=== PATIENT | male | born 1980 | race Hispanic/Latino ===

== ENCOUNTER 2025-04-04 14:32 | Inpatient (IN) | payer SELFPAY ==
[~2025-04-04] VITALS: Ht 170.2 cm; Wt 84.3 kg
--- NOTE | 2025-04-04 14:54 | ERN ---
General Chief Complaint: Abdominal Pain Stated Complaint: ABDOMINAL PAIN Time Seen by MD: 14:35 Source: patient, family History of Present Illness Initial Comments Is a 45-year-old male who came to the ER with complain of severe abdominal pain which started after eating. The patient, he has not had proper bowel movement for past few days and had degrees passage of flatus. Timing/Duration: 1-3 hours Severity: severe Modifying Factors: improves with eating Associated Symptoms: other Allergies: Coded Allergies: No Known Drug Allergies (Unverified Allergy, Unknown, 04/04/25) Past Medical History Past Medical History: Hypertension Past Surgical History: None Gastrointestinal/Abdominal: (+) abdominal pain Physical Exam General Appearance: (+) moderate distress Orientation: (+) alert, (+) oriented x 3 Head/Face Trauma: No Ear, Nose, Throat: (-) hearing grossly normal, (-) normal ENT inspection, (-) moist mucous membraine, (-) normal pharynx, (-) normal TM, (-) abnormal TM, (-) pharyngeal erythema, (-) sinus drainange, (-) sinus pain, (-) tonsillar exudate, (-) tonsillar swelling, (-) nasal drip, (-) nasal congestion, (-) hearing decreased, (-) dry mucous membraine, (-) other documentation Neck: (-) normal inspection, (-) supple, (-) full range of motion, (-) no JVD, (-) non-tender, (-) no bruit, (-) tender, (-) limited range of motion, (-) tender lateral, (-) tender midline, (-) thyromegaly, (-) lymphadenopathy, (-) masses, (-) carotid bruit, (-) other documentaion Respiratory: (-) chest non-tender, (-) lungs clear, (-) well ventilated, (-) decreased breath sounds, (-) retractions, (-) abnormal breath sound, (-) crackles, (-) plerual rub, (-) rales, (-) rhonchi, (-) stridor, (-) wheezing, (- ) other documentation Heart: (-) regular, (-) no gallop, (-) murmur, (-) irregular, (-) bradycardia, (-) tachycardia, (-) systolic murmur, (-) diastolic murmur, (-) extra beats, (-) friction rub, (-) gallop/S3, (-) gallop/S4, (-) other documentation Vascular: (-) no edema, (-) normal peripheral pulse, (-) no JVD, (-) abdominal aorta, (-) abnormal peripheral pulse, (-) carotid bruit, (-) edema, (-) JVD, (-) varicose vein, (-) other documentation Gastrointestinal: (+) tender Extremities: (-) normal range of motion, (-) non-tender, (-) normal inspection, (-) no pedal edema, (-) no calf tenderness, (-) normal capillary refill, (-) pelvis stable, (-) calf tenderness, (-) inflammation, (-) pedal edema, (-) slow capillary refill, (-) swelling, (-) other Neurologic/Psychiatric: (-) normal speech, (-) no motor defecits, (-) no sensory deficits, (-) synthetic filament extruder II-XII nml as tested, (-) normal gait, (-) normal mood/affect, (-) abnormal cerebellar tests, (-) abnormal gait, (-) aphasia, (-) facial droop, (-) other documentation Results Laboratory and Microbiology Lab and Micro Result Laboratory Tests Test 04/04/25 14:47 04/04/25 15:52 White Blood Count 11.2 K/uL (4.8-10.8) H Red Blood Count 4.89 MIL/uL (4.50-6.20) Hemoglobin 14.2 g/dL (14.0-18.0) Hematocrit 42.7 % (42-54) Mean Corpuscular Volume 87.3 fL (79-99) Mean Corpuscular Hemoglobin 29.0 pg (27.0-33.0) Mean Corpuscular Hemoglobin Concent 33.3 g/dL (32.0-36.0) Red Cell Distribution Width 13.2 % (11.0-15.5) Platelet Count 342 K/uL (130-400) Mean Platelet Volume 10.8 fL (7.5-10.5) H Immature Granulocyte % (Auto) 0.3 % (0-1) Neutrophils (%) (Auto) 61.4 % (40.0-77.0) Lymphocytes (%) (Auto) 29.1 % (21.0-51.0) Monocytes (%) (Auto) 7.7 % (3.0-13.0) Eosinophils (%) (Auto) 1.1 % (0.0-8.0) Basophils (%) (Auto) 0.4 % (0.0-5.0) Neutrophils # (Auto) 6.9 K/uL (1.8-7.7) Lymphocytes # (Auto) 3.3 K/uL (1.0-4.8) Monocytes # (Auto) 0.9 K/uL (0.1-1.0) Eosinophils # (Auto) 0.12 K/uL (0.00-0.70) Basophils # (Auto) 0.05 K/uL (0.00-0.20) Absolute Immature Granulocyte (auto 0.03 K/uL (0-1) Nucleated Red Blood Cells 0.0 % (0.0-0.19) Prothrombin Time 11.1 SEC (9.6-11.6) Prothromb Time International Ratio 1.05 (0.85-1.15) Activated Partial Thromboplast Time 27.0 SEC (26.3-35.5) Sodium Level 141 mmol/L (136-145) Potassium Level 3.6 mmol/L (3.5-5.1) Chloride Level 102 mmol/L (101-111) Carbon Dioxide Level 29 mmol/L (21-32) Blood Urea Nitrogen 19 mg/dL (7-18) H Creatinine 0.8 mg/dL (0.5-1.3) Glomerular Filtration Rate Calc 111 mL/min (>90) Random Glucose 127 mg/dL (70-105) H Lactic Acid Level 1.4 mmol/L (0.8-2.5) Total Calcium 8.8 mg/dL (8.5-10.1) Total Bilirubin 0.5 mg/dL (0.2-1.0) Direct Bilirubin 0.1 mg/dL (0.0-0.3) Aspartate Amino Transf (AST/SGOT) 23 U/L (10-37) Alanine Aminotransferase (ALT/SGPT) 31 U/L (12-78) Alkaline Phosphatase 62 U/L (50-136) Troponin I High Sensitivity 129 ng/L (4-75) *H 132 ng/L (4-75) *H Total Protein 8.0 g/dL (6.0-8.3) Albumin 4.2 g/dL (3.5-5.0) Lipase 17 U/L (16-77) Procalcitonin < 0.05 ng/mL (0.05-0.5) L MDM MDM: Differential diagnosis: Rationale: Tests considered and ordered secondary to shared decision making include: labs, ECG and radiology Previous outside records reviewed: Old ER visits. Risk of complication and/or morbidity or mortality of patient management: None Medications-Per medication reconciliation Need for hospitalization: Patient does meet criteria for hospitalization. Need for emergency major/minor surgery: No There are no social concerns with this patient. Prescription drug management Prescriptions will include symptomatic care Patient's prior external medical records from other ER visits were reviewed by me as indicated. Prior testing and results from previous visits were reviewed. Prior tests were taken into account with medical decision making and resource utilization, independent historian/historians were used to obtain complete medical history. I independently interpreted the test that were performed, results were reviewed by me and considered findings on radiology if ordered. Medical management and examination interpretation discussions were had by me with other qualified healthcare professionals as indicated for the patient's care. ED Course Orders Procedure Category Date Status Time 12 Lead Ekg Tracing- EKG 04/04/25 Resulted Technical 14:39 Cbc With Differential LAB 04/04/25 Complete 14:39 Basic Metabolic Panel LAB 04/04/25 Complete 14:39 Hepatic Function Panel LAB 04/04/25 Complete 14:39 Lactic Acid LAB 04/04/25 Complete 14:39 Lipase LAB 04/04/25 Complete 14:39 Procalcitonin LAB 04/04/25 Complete 14:39 Pt And Ptt LAB 04/04/25 Complete 14:39 Troponin I High LAB 04/04/25 Complete Sensitivity 14:39 Urinalysis LAB 04/04/25 Logged W/Microscopic 14:39 Chest 1vw RAD 04/04/25 Resulted 14:39 Ct Abdomen/Pelvis W/O CT 04/04/25 Resulted Contrast 14:39 Ondansetron 4mg Inj PHA 04/04/25 Complete (Zofran 4mg Inj) 15:00 Famotidine 20mg Vial PHA 04/04/25 Complete (Pepcid 20mg Vial) 15:00 Morphine 2mg Syg PHA 04/04/25 Complete (Morphine 2mg Syg) 15:00 Troponin I High LAB 04/04/25 Complete Sensitivity 15:45 Current Medications Medications (Trade) Dose Ordered Sig/Frederikc Route PRN Reason Start Time Stop Time Status Last Admin Dose Admin Famotidine (Pepcid 20mg Vial) 20 mg ONCE ONCE IV 04/04/25 15:00 04/04/25 15:01 DC 04/04/25 15:23 Morphine Sulfate (morPHINE 2MG SYG) 2 mg ONCE ONCE IVP 04/04/25 15:00 04/04/25 15:01 DC 04/04/25 15:23 Ondansetron HCl (zoFRAN 4MG INJ) 4 mg ONCE ONCE IVP 04/04/25 15:00 04/04/25 15:01 DC 04/04/25 15:23 Vital Signs Date Time Temp Pulse Resp B/P (MAP) Pulse Ox O2 Delivery O2 Flow Rate FiO2 04/04/25 15:03 98.1 70 18 121/82 98 Room Air* 0 21 04/04/25 14:33 98.1 70 16 121/82 98 Room Air DX & DISP Disposition: Inpatient Departure Impression: Primary Impression: Abdominal pain Additional Impression: Elevated troponin Condition: Stable FERNANDO JUAREZ MD Apr 04, 2025 14:54 OMID CHRISTY MD Apr 04, 2025 17:09
[2025-04-04 14:57] LABS: IMMATURE GRANULOCYTE ABSOLUTE 0.03 K/uL (0-1); NUCLEATED RED BLOOD CELLS 0.0 % (0.0-0.19); PLATELET COUNT (AUTO) 342 K/uL (130-400); RED BLOOD CELL COUNT(AUTO) 4.89 MIL/uL (4.50-6.20); RED CELL DISTRIBUTION WIDTH 13.2 % (11.0-15.5); WHITE BLOOD COUNT (AUTO) 11.2 K/uL (4.8-10.8)
--- NOTE | 2025-04-04 15:03 | EKG ---
[facility] Test Date: 2025-04-04 Test Time: 14:57:50 Pat Name: ORIANA MCNEAL Department: [facility] Room: Gender: M [employer] Chemist: [facility] : 1980 Requested By: OMID CHRISTY Order Number: [id number] Reading MD: John Ellsworth Measurements Intervals [place] Rate: 69 P: 9 MN: 182 QRS: -32 QRSD: 87 T: 22 QT: 383 QTc: 412 Interpretive Statements Sinus rhythm Inferior infarct, old ST elevation, consider anterolateral injury No previous ECG available for comparison Electronically Signed On 04-04-2025 16:17:02 TREASURY ANALYST by John Ellsworth Please click the below link to view image of tracing.
[2025-04-04 15:12] LABS: CREATININE 0.8 mg/dL (0.5-1.3); GLOMERULAR FILTR. RATE CALC 111.0 mL/min (>90); GLUCOSE,RANDOM 127.0 mg/dL (70-105); SODIUM SERUM 141.0 mmol/L (136-145); UREA NITROGEN, BLOOD 19.0 mg/dL (7-18)
[2025-04-04] MEDS: FAMOTIDINE 20MG VIAL IV ONE (15:23)
[2025-04-04 15:27] LABS: INR 1.05 (0.85-1.15)
[2025-04-04 15:29] LABS: ASPARTATE AMINOTRANSFERASE 23.0 U/L (10-37); TOTAL PROTEIN, SERUM 8.0 g/dL (6.0-8.3)
--- NOTE | 2025-04-04 16:00 | HMCIMG ---
EXAM: CR Chest, 2 View. CLINICAL HISTORY: Shortness of breath COMPARISON: None provided. FINDINGS: LUNGS: The lungs show no infiltrate or other acute finding. PLEURAL SPACES: No pleural effusion or pneumothorax. MEDIASTINUM: Cardiac size and mediastinal contours within normal limits. BONES: No acute osseous abnormality. IMPRESSION: No acute cardiopulmonary pathology is evident. /[place]
--- NOTE | 2025-04-04 16:18 | HMCIMG ---
EXAM: CT Abdomen and Pelvis Without IV contrast CLINICAL HISTORY: Abdominal pain TECHNIQUE: Axial computed tomography images of the abdomen and pelvis without intravenous contrast. CONTRAST: No IV contrast. COMPARISON: None provided. FINDINGS: LUNG BASES: The lung bases appear clear. No pleural effusions are seen. LIVER: Unremarkable. GALLBLADDER AND BILE DUCTS: The gallbladder appears within normal limits. No radioopaque gallstones are seen. No biliary ductal dilatation is evident. PANCREAS: Unremarkable. SPLEEN: Unremarkable. ADRENAL GLANDS: Unremarkable. KIDNEYS, URETERS, AND BLADDER: The kidneys appear within normal limits. There is no hydronephrosis or hydroureter. No urinary calculi are seen. STOMACH AND BOWEL: Unremarkable appearance of the stomach and bowel. No evidence of bowel obstruction. No evidence suggesting enteritis or colitis. APPENDIX: No evidence of acute appendicitis on CT examination. PERITONEUM: No free fluid. No free air. LYMPH NODES: No lymphadenopathy is evident. REPRODUCTIVE: Hyperdense foreign objects within the shaft of the penis, may represent subcutaneous implants. VASCULATURE: No evidence of abdominal aortic aneurysm. BONES: No aggressive appearing osseous lesion. No acute osseous pathology evident. IMPRESSION: 1. No acute intraabdominal or pelvic pathology. /[place]
--- NOTE | 2025-04-04 17:47 | HP ---
[facility] PH[facility] Date of Service: Apr 04, 2025 Time of Service: 17:47 HISTORY OF PRESENT ILLNESS: 45-year-old male with past medical history of hypertension, hyperlipidemia presented to the hospital secondary to abdominal pain. Patient states he noted that he was having pain in the left upper quadrant/epigastric area today. He had associated nausea and vomiting associated with the pain. He is having episodes of constipation but had a small amount of bowel movement today. He denied any melena, hematochezia, hematemesis. He currently denies active chest pain. He does endorse episodes of chest pain occasionally. He had one episode few months ago. Denied any jaw pain, back pain, numbness to his arms. Denied any falls, syncopal episode. He has seen Dr. Nima Brooks in the past and had undergone stress test. Denied any dysuria, cough, fever, chills. Patient's white count was noted to be 11.2, hemoglobin was 14.2, platelet count was 342 K, sodium was 140, potassium was 3.6, creatinine was 0.8, BUN was 19, LFTs were unremarkable, lipase was negative patient's troponin was noted to be positive with was set noted to be 129 and 2nd one was noted to be [address] abdomen pelvis which showed no acute intra-abdominal pathology REVIEW OF SYSTEMS CONSTITUTIONAL: Denies fevers, chills, or night sweats. No unintentional weight loss reported. NEUROLOGICAL: Denies headache, amaurosis fugax, motor weakness, sensory deficit, vertigo/spinning sensation, gait abnormalities, or tremors. ENT: No hearing loss, otalgia, otorrhea, rhinitis, rhinorrhea, hoarseness, or sore throat. CARDIOVASCULAR: Denies any exertional angina, dyspnea on exertion, orthopnea, paroxysmal nocturnal dyspnea, palpitations, life-threatening arrhythmias, claudication. PULMONARY: Denies any shortness of breath, cough, phlegm/sputum, hemoptysis, pleuritic chest pain. SLEEP: Denies morning headaches, daytime somnolence or napping. Denies difficulty falling asleep, staying asleep, waking from sleep. Denies knowledge of snoring. GASTROINTESTINAL: Positive for nausea, vomiting, constipation. Denied any diarrhea, melena, hematochezia, hematemesis GENITOURINARY: Denies frequency, urgency, nocturia, hematuria or incontinence (Storage/Irritative symptoms.) Low urinary stream, straining to void, urinary intermittency or hesitancy, splitting of the voiding stream, terminal dribbling. ENDOCRINOLOGIC: Denies polyuria, polydipsia, polyphagia or heat/cold intolerances. HEMATOLOGIC: Denies thrombophilia/previous clots, or coagulopathy/bleeding disorders. ONCOLOGIC: Denies personal history of malignancy. DERMATOLOGIC: Denies rashes or pruritus. PSYCHIATRIC: Denies any suicidal or homicidal ideation. Denies hallucinations. PAST MEDICAL HISTORY: Hypertension, hyperlipidemia PAST SURGICAL HISTORY: Denied any surgical history PAST SOCIAL HISTORY: Denied smoking. He quit drinking more than 20 years ago. He patient has a history of cocaine use. He states he quit using cocaine around 20 years ago. He currently works as a painter helper FAMILY HISTORY: Denied any pertinent family history Coded Allergies: No Known Drug Allergies (Unverified Allergy, Unknown, 04/04/25) PHYSICAL EXAM GENERAL APPEARANCE: The patient is awake, alert, and oriented, in no acute cardiopulmonary distress. NEUROLOGICAL: Cranial nerves II-XII grossly intact. Motor is 5/5 in bilateral upper and lower extremities proximal to distal. No sensory deficits. HEENT: Face is symmetric. Pupils are equal and reactive. Extraocular movements are intact. NECK: Supple. No JVD. No thyromegaly. No submental, submandibular, pre- /postauricular, occipital or supraclavicular lymphadenopathy. CHEST: Normal chest expansion. No Telemetry. LUNGS: Absence of any rales, rhonchi or any wheezing. CARDIOVASCULAR: Regular. S1 and S2 normal. No appreciable rubs, murmurs or gallops. ABDOMEN: Soft, nontender, and nondistended. There is no rebound, voluntary guarding, or rigidity. : Deferred. No Vaz. EXTREMITIES: Non-edematous and not cyanotic. No clubbing. Good capillary refill. SKIN: No skin breakdown. Vital Sign (Last 24 Hours) 04/04/25 15:03 Temp 98.1 Pulse 70 Resp 18 B/P (MAP) 121/82 Pulse Ox 98 O2 Delivery Room Air* O2 Flow Rate 0 FiO2 21 LABS: Laboratory: Test 04/04/25 15:52 04/04/25 14:47 Range/Units Troponin I High Sensitivity 132 *H 4-75 ng/L White Blood Count 11.2 H 4.8-10.8 K/uL Red Blood Count 4.89 4.50-6.20 MIL/uL Hemoglobin 14.2 14.0-18.0 g/dL Hematocrit 42.7 42-54 % Mean Corpuscular Volume 87.3 79-99 fL Mean Corpuscular Hemoglobin 29.0 27.0-33.0 pg Mean Corpuscular Hemoglobin Concent 33.3 32.0-36.0 g/dL Red Cell Distribution Width 13.2 11.0-15.5 % Platelet Count 342 130-400 K/uL Mean Platelet Volume 10.8 H 7.5-10.5 fL Immature Granulocyte % (Auto) 0.3 0-1 % Neutrophils (%) (Auto) 61.4 40.0-77.0 % Lymphocytes (%) (Auto) 29.1 21.0-51.0 % Monocytes (%) (Auto) 7.7 3.0-13.0 % Eosinophils (%) (Auto) 1.1 0.0-8.0 % Basophils (%) (Auto) 0.4 0.0-5.0 % Neutrophils # (Auto) 6.9 1.8-7.7 K/uL Lymphocytes # (Auto) 3.3 1.0-4.8 K/uL Monocytes # (Auto) 0.9 0.1-1.0 K/uL Eosinophils # (Auto) 0.12 0.00-0.70 K/uL Basophils # (Auto) 0.05 0.00-0.20 K/uL Absolute Immature Granulocyte (auto 0.03 0-1 K/uL Nucleated Red Blood Cells 0.0 0.0-0.19 % Prothrombin Time 11.1 9.6-11.6 SEC Prothromb Time International Ratio 1.05 0.85-1.15 Activated Partial Thromboplast Time 27.0 26.3-35.5 SEC Sodium Level 141 136-145 mmol/L Potassium Level 3.6 3.5-5.1 mmol/L Chloride Level 102 101-111 mmol/L Carbon Dioxide Level 29 21-32 mmol/L Blood Urea Nitrogen 19 H 7-18 mg/dL Creatinine 0.8 0.5-1.3 mg/dL Glomerular Filtration Rate Calc 111 >90 mL/min Random Glucose 127 H 70-105 mg/dL Lactic Acid Level 1.4 0.8-2.5 mmol/L Total Calcium 8.8 8.5-10.1 mg/dL Total Bilirubin 0.5 0.2-1.0 mg/dL Direct Bilirubin 0.1 0.0-0.3 mg/dL Aspartate Amino Transf (AST/SGOT) 23 10-37 U/L Alanine Aminotransferase (ALT/SGPT) 31 12-78 U/L Alkaline Phosphatase 62 50-136 U/L Total Protein 8.0 6.0-8.3 g/dL Albumin 4.2 3.5-5.0 g/dL Lipase 17 16-77 U/L Procalcitonin < 0.05 L 0.05-0.5 ng/mL DIAGNOSTICS / RADIOLOGY: CT abdomen was negative for any acute abnormality ASSESSMENT: Troponin elevation nonspecific likely in setting of type 2 [place] Abdominal pain differential GERD Dehydration Constipation PLAN: - patient to be admitted to [facility] with telemetry -in reference to troponin elevation. We will trend troponins q.6 hours to ensure troponin remains stable. Obtain echocardiogram. Patient to be started on aspirin. Obtain Cardiology consultation. -in reference to abdominal pain; CT abdomen was negative. Patient's abdominal pain has improved. Patient to be started on protonix. We will closely monitor symptoms. -check TSH, hemoglobin A1c -obtain home medications which will be reconciled once available -the patient will be started on NS for gentle hydration -further orders per hospitalization course. Advanced Care Planning Which of the following were discussed: Hospice care: Yes __ No _x_ Therapeutic options: Yes __ No __ Advance directives: Yes __ No __ Other discussions: Discussed with who?: patient (Patient, family or surrogates) Voluntary nature of this service was explained to the patient? Yes _x_ No __ Amount of time spent: 25 minutes AKHIL Orellana MD, MD Apr 04, 2025 17:47
[2025-04-04] MEDS: 0.9%NACL 1000ML 1,000 ML IV SCH (18:36)
[2025-04-04] MEDS: ASPIRIN 81MG CHEW TAB PO ONE (18:36)
[2025-04-04 20:10] VITALS: BP 129/85; PULSE 48; RESP 17; TEMP 97.9
[2025-04-04] MEDS ORDERED: FAMOTIDINE 20MG VIAL IV SCH (21:00)
[2025-04-04] MEDS ORDERED: LOSA25TA41 PO (21:43)
[2025-04-04 21:53] LABS: APPEARANCE,URINE CLEAR (CLEAR); GLUCOSE, URINE (UA) NEGATIVE (NEGATIVE); LEUKOCYTE ESTERASE ,URINE NEGATIVE Leu/uL (NEGATIVE); NITRATE,URINE NEGATIVE (NEGATIVE); OCCULT BLOOD,URINE NEGATIVE (NEGATIVE)
[2025-04-04 22:00] LABS: SQUAMOUS EPITHELIAL CELL,UR RARE /HPF (0-2)
[2025-04-04 22:02] LABS: AMPHET/METH SCREEN,URINE NEGATIVE (NEGATIVE); BARBITURATE SCREEN, URINE NEGATIVE (NEGATIVE); CANNABINOID SCREEN,URINE NEGATIVE (NEGATIVE); COCAINE SCREEN,URINE NEGATIVE (NEGATIVE)
[2025-04-04 22:10] VITALS: BP 129/85; PULSE 48; RESP 17; TEMP 97.9; O2SAT 98
[2025-04-05] VITALS (7 sets, daily range): BP systolic 114–133; BP diastolic 61–80; PULSE 53–65; RESP 12–18; TEMP 97.3–97.9; O2SAT 92–98
[2025-04-05 06:18] LABS: IMMATURE GRANULOCYTE ABSOLUTE 0.02 K/uL (0-1); NUCLEATED RED BLOOD CELLS 0.0 % (0.0-0.19); PLATELET COUNT (AUTO) 302 K/uL (130-400); RED BLOOD CELL COUNT(AUTO) 4.22 MIL/uL (4.50-6.20); RED CELL DISTRIBUTION WIDTH 13.4 % (11.0-15.5); WHITE BLOOD COUNT (AUTO) 8.0 K/uL (4.8-10.8)
[2025-04-05 06:26] LABS: CREATININE 0.9 mg/dL (0.5-1.3); GLOMERULAR FILTR. RATE CALC 107.0 mL/min (>90); GLUCOSE,RANDOM 99.0 mg/dL (70-105); SODIUM SERUM 144.0 mmol/L (136-145); UREA NITROGEN, BLOOD 19.0 mg/dL (7-18)
[2025-04-05] MEDS: ASPIRIN 81MG CHEW TAB PO SCH (08:23)
--- NOTE | 2025-04-05 09:36 | PN ---
[facility] PROGRESS NOTE Date of Service: Apr 05, 2025 Time of Service: 09:[address] Villatoro SUBJECTIVE: [ 04/04 45-year-old male with past medical history of hypertension, hyperlipidemia presented to the hospital secondary to abdominal pain. Patient states he noted that he was having pain in the left upper quadrant/epigastric area today. He had associated nausea and vomiting associated with the pain. He is having episodes of constipation but had a small amount of bowel movement today. He denied any melena, hematochezia, hematemesis. He currently denies active chest pain. He does endorse episodes of chest pain occasionally. He had one episode few months ago. Denied any jaw pain, back pain, numbness to his arms. Denied any falls, syncopal episode. He has seen Dr. Nima Brooks in the past and had undergone stress test. Denied any dysuria, cough, fever, chills. Patient's white count was noted to be 11.2, hemoglobin was 14.2, platelet count was 342 K, sodium was 140, potassium was 3.6, creatinine was 0.8, BUN was 19, LFTs were unremarkable, lipase was negative patient's troponin was noted to be positive with was set noted to be 129 and 2nd one was noted to be [address] abdomen pelvis which showed no acute intra-abdominal pathology 04/05 patient was seen by nurse and physician during rounding in room 309. Patient came to the ER with a complaint of chest pain and elevated troponins in the most recent one is 118 are pending soaker to evaluate the patient. At this moment patient is NPO on normal saline 75 mL/hour. Toxicology negative drug screen negative we are pending 2D echo. Chest x-ray negative CT chest negative CT abdomen. At this moment patient denies shortness or breath, chest pain, nausea, vomiting or any other discomfort. A.m. labs.] REVIEW OF SYSTEMS CONSTITUTIONAL: Denies fevers, chills, or night sweats. No unintentional weight loss reported. NEUROLOGICAL: Denies headache, amaurosis fugax, motor weakness, sensory deficit, vertigo/spinning sensation, gait abnormalities, or tremors. ENT: No hearing loss, otalgia, otorrhea, rhinitis, rhinorrhea, hoarseness, or sore throat. CARDIOVASCULAR: Denies any exertional angina, dyspnea on exertion, orthopnea, paroxysmal nocturnal dyspnea, palpitations, life-threatening arrhythmias, yue ication. PULMONARY: Denies any shortness of breath, cough, phlegm/sputum, hemoptysis, pleuritic chest pain. SLEEP: Denies morning headaches, daytime somnolence or napping. Denies difficulty falling asleep, staying asleep, waking from sleep. Denies knowledge of snoring. GASTROINTESTINAL: Positive for nausea, vomiting, constipation. Denied any diarrhea, melena, hematochezia, hematemesis GENITOURINARY: Denies frequency, urgency, nocturia, hematuria or incontinence (Storage/Irritative symptoms.) Low urinary stream, straining to void, urinary intermittency or hesitancy, splitting of the voiding stream, terminal dribbling. ENDOCRINOLOGIC: Denies polyuria, polydipsia, polyphagia or heat/cold intolerances. HEMATOLOGIC: Denies thrombophilia/previous clots, or coagulopathy/bleeding disorders. ONCOLOGIC: Denies personal history of malignancy. DERMATOLOGIC: Denies rashes or pruritus. PSYCHIATRIC: Denies any suicidal or homicidal ideation. Denies hallucinations. PHYSICAL EXAM GENERAL APPEARANCE: The patient is awake, alert, and oriented, in no acute cardiopulmonary distress. NEUROLOGICAL: Cranial nerves II-XII grossly intact. Motor is 5/5 in bilateral upper and lower extremities proximal to distal. No sensory deficits. HEENT: Face is symmetric. Pupils are equal and reactive. Extraocular movements are intact. NECK: Supple. No JVD. No thyromegaly. No submental, submandibular, pre- /postauricular, occipital or supraclavicular lymphadenopathy. CHEST: Normal chest expansion. No Telemetry. LUNGS: Absence of any rales, rhonchi or any wheezing. CARDIOVASCULAR: Regular. S1 and S2 normal. No appreciable rubs, murmurs or gallops. ABDOMEN: Soft, nontender, and nondistended. There is no rebound, voluntary guarding, or rigidity. : Deferred. No Vaz. EXTREMITIES: Non-edematous and not cyanotic. No clubbing. Good capillary refill. SKIN: No skin breakdown. Vital Signs (last 8hr) Date Time Temp Pulse Resp B/P (MAP) Pulse Ox O2 Delivery O2 Flow Rate FiO2 04/05/25 04:00 97.5 65 16 124/68 100 Room Air LABS: Laboratory: Test 04/05/25 06:08 04/04/25 23:39 04/04/25 21:44 04/04/25 14:47 Range/Units White Blood Count 8.0 # 4.8-10.8 K/uL Red Blood Count 4.22 L 4.50-6.20 MIL/uL Hemoglobin 12.2 L 14.0-18.0 g/dL Hematocrit 37.7 L 42-54 % Mean Corpuscular Volume 89.3 79-99 fL Mean Corpuscular Hemoglobin 28.9 27.0-33.0 pg Mean Corpuscular Hemoglobin Concent 32.4 32.0-36.0 g/dL Red Cell Distribution Width 13.4 11.0-15.5 % Platelet Count 302 130-400 K/uL Mean Platelet Volume 10.7 H 7.5-10.5 fL Immature Granulocyte % (Auto) 0.3 0-1 % Neutrophils (%) (Auto) 54.3 40.0-77.0 % Lymphocytes (%) (Auto) 34.1 21.0-51.0 % Monocytes (%) (Auto) 8.8 3.0-13.0 % Eosinophils (%) (Auto) 1.9 0.0-8.0 % Basophils (%) (Auto) 0.6 0.0-5.0 % Neutrophils # (Auto) 4.3 1.8-7.7 K/uL Lymphocytes # (Auto) 2.7 1.0-4.8 K/uL Monocytes # (Auto) 0.7 0.1-1.0 K/uL Eosinophils # (Auto) 0.15 0.00-0.70 K/uL Basophils # (Auto) 0.05 0.00-0.20 K/uL Absolute Immature Granulocyte (auto 0.02 0-1 K/uL Nucleated Red Blood Cells 0.0 0.0-0.19 % Sodium Level 144 136-145 mmol/L Potassium Level 3.7 3.5-5.1 mmol/L Chloride Level 109 101-111 mmol/L Carbon Dioxide Level 28 21-32 mmol/L Blood Urea Nitrogen 19 H 7-18 mg/dL Creatinine 0.9 0.5-1.3 mg/dL Glomerular Filtration Rate Calc 107 >90 mL/min Random Glucose 99 70-105 mg/dL Total Calcium 7.6 L 8.5-10.1 mg/dL Troponin I High Sensitivity 118 *H 4-75 ng/L Urine Color LIGHT-YELLOW YELLOW Urine Appearance CLEAR CLEAR Urine pH 6.0 5.0-8.0 Urine Specific [place] 1.022 1.001-1.031 Urine Protein NEGATIVE NEGATIVE mg/dL Urine Glucose (UA) NEGATIVE NEGATIVE mg/dL Urine Ketones 5 H NEGATIVE mg/dL Urine Occult Blood NEGATIVE NEGATIVE Urine Nitrate NEGATIVE NEGATIVE Urine Bilirubin NEGATIVE NEGATIVE mg/dL Urine Urobilinogen 0.2 0.2-1.0 mg/dL Urine Leukocyte Esterase NEGATIVE NEGATIVE Jaimee/uL Urine RBC 0-1 0-1 /HPF Urine WBC 0-1 0-1 /HPF Urine Squamous Epithelial Cells RARE 0-2 /HPF Urine Bacteria None None Seen /HPF Urine Opiates Screen NEGATIVE NEGATIVE Urine Barbiturates Screen NEGATIVE NEGATIVE Urine Phencyclidine Screen NEGATIVE NEGATIVE Urine Amphetamines Screen NEGATIVE NEGATIVE Urine Benzodiazepines Screen NEGATIVE NEGATIVE Urine Cocaine Screen NEGATIVE NEGATIVE Urine Marijuana (THC) Screen NEGATIVE NEGATIVE Prothrombin Time 11.1 9.6-11.6 SEC Prothromb Time International Ratio 1.05 0.85-1.15 Activated Partial Thromboplast Time 27.0 26.3-35.5 SEC Lactic Acid Level 1.4 0.8-2.5 mmol/L Total Bilirubin 0.5 0.2-1.0 mg/dL Direct Bilirubin 0.1 0.0-0.3 mg/dL Aspartate Amino Transf (AST/SGOT) 23 10-37 U/L Alanine Aminotransferase (ALT/SGPT) 31 12-78 U/L Alkaline Phosphatase 62 50-136 U/L Total Protein 8.0 6.0-8.3 g/dL Albumin 4.2 3.5-5.0 g/dL Lipase 17 16-77 U/L Procalcitonin < 0.05 L 0.05-0.5 ng/mL Thyroid Stimulating Hormone (TSH) 1.42 0.36-3.74 uIU/mL Current Medications Medications (Trade) Dose Ordered Sig/Fred[place]ick Route PRN Reason Start Time Stop Time Status Last Admin Dose Admin Acetaminophen (TYLenol 500MG TAB) 500 mg Q6H PRN PO MILD PAIN (1-3) 04/04/25 18:00 05/04/25 17:59 Aspirin (Aspirin 81mg Chew Tab) 81 mg DAILY PO 04/05/25 09:00 05/05/25 08:59 Famotidine (Pepcid 20mg Vial) 20 mg BID IV 04/04/25 21:00 04/04/25 18:27 DC Losartan Potassium (CozAAR 25MG TAB) 25 mg DAILY PO 04/05/25 09:00 05/05/25 08:59 Morphine Sulfate (morPHINE 2MG SYG) 2 mg Q6H PRN IVP SEVERE PAIN (7-10) 04/04/25 18:00 04/11/25 17:59 Ondansetron HCl (zoFRAN 4MG INJ) 4 mg Q6H PRN IVP NAUSEA/VOMITING 04/04/25 18:00 05/04/25 17:59 Pantoprazole Sodium (PROTonix 40MG INJ) 40 mg Q24H IVP 04/04/25 18:30 05/04/25 18:29 04/04/25 18:36 40 MG Sodium Chloride 1,000 ml @ 75 mls/hr [id number] IV 04/04/25 18:00 05/04/25 17:59 04/04/25 18:36 75 MLS/HR DIAGNOSTICS / RADIOLOGY: [ ] ASSESSMENT: Troponin elevation nonspecific likely in setting of type 2 [place] Abdominal pain differential GERD Dehydration Constipation PLAN: Patient came to the ER with a complaint of chest pain and elevated troponins in the most recent one is 118 are pending soaker to evaluate the patient. At this moment patient is NPO on normal saline 75 mL/hour. Toxicology negative drug screen negative we are pending 2D echo. Chest x-ray negative CT chest negative CT abdomen. At this moment patient denies shortness or breath, chest pain, nausea, vomiting or any other discomfort. A.m. labs. Patient to be started on protonix. We will closely monitor symptoms. -obtain home medications which will be reconciled once available -the patient will be started on NS for gentle hydration -further orders per hospitalization course. ATTESTATION BY PHYSICIAN I have seen and examined the patient. I reviewed the documentation, medical decision making, and treatment plan as noted by the mid-level provider above. I agree with the findings and plan of care. JANUARY Gray MD [employer] [employer] Apr 05, 2025 09:36
--- NOTE | 2025-04-05 14:07 | NUR ---
INFORMED CHRISTIANNE ZHOU THAT FAMILY IS REQUESTING [facility] HAND MICA PLATE LAYER TO SEE PATIENT DR ESCALERA HAS NOT COME BY OR ANSWE ME RE: CONSULT. STATED IT IS ANDREA ANDHIS PETER ARE WAITING FOR HIM AT HOME
--- NOTE | 2025-04-05 15:13 | CONS ---
CARDIOLOGY CONSULT HPI 45-year-old male with past medical history of hypertension, hyperlipidemia presented to the hospital secondary to abdominal pain. Patient states he noted that he was having pain in the left upper quadrant/epigastric area today. He had associated nausea and vomiting associated with the pain. Patient mention in the morning he ran 3 miles in 30 mins without stopping or without complaints. His states that they were having lunch and they were having spicy wing and salsa. Today he was lying in bed in no acute distress and he denies cp. We have been consulted elevated troponin. pmhx as mentioned above surgical hx non contributory social hx fomer smoker, no alcohol use ROS General: No malaise or fever. Neurological: No fainting episodes or seizures. HEENT: No nasal congestion or nasal secretion. Cardiac: No chest pain or palpitations. Gastrointestinal: + vomiting no diarrhea. Skin: No rashes or lesions. Hematological: No bruises or bleeding. Musculoskeletal: No joint pains or arthralgias. Psychiatric: No depression or panic attacks. Patient History: Diabetes mellitus MOTHER FATHER FH: hyperlipidemia MOTHER FATHER Hypertension MOTHER FATHER Vitals/Labs PE GENERAL APPEARANCE: The patient is awake, alert, and oriented, in no acute cardiopulmonary distress. NEUROLOGICAL: Cranial nerves II-XII grossly intact. Motor is 5/5 in bilateral upper and lower extremities proximal to distal. No sensory deficits. HEENT: Face is symmetric. Pupils are equal and reactive. Extraocular movements are intact. NECK: Supple. No JVD. No thyromegaly. No submental, submandibular, pre- /postauricular, occipital or supraclavicular lymphadenopathy. CHEST: Normal chest expansion. No Telemetry. LUNGS: Absence of any rales, rhonchi or any wheezing. CARDIOVASCULAR: Regular. S1 and S2 normal. No appreciable rubs, murmurs or gallops. ABDOMEN: Soft, nontender, and nondistended. There is no rebound, voluntary guarding, or rigidity. : Deferred. No Vaz. EXTREMITIES: Non-edematous and not cyanotic. No clubbing. Good capillary refill. SKIN: No skin breakdown. Vital Signs Date Time Temp Pulse Resp B/P (MAP) Pulse Ox O2 Delivery O2 Flow Rate FiO2 04/05/25 12:00 97.9 55 16 117/77 99 Room Air 04/05/25 10:56 0 21 Laboratory Tests 04/05/25 06:08 Allergies: Coded Allergies: No Known Drug Allergies (Unverified Allergy, Unknown, 04/04/25) Medications Current Medications Ondansetron HCl 4 mg ONCE ONCE IVP Last administered on 04/04/25at 15:23; Start 04/04/25 at 15:00; Stop 04/04/25 at 15:01; Status DC Famotidine 20 mg ONCE ONCE IV Last administered on 04/04/25at 15:23; Start 04/04/25 at 15:00; Stop 04/04/25 at 15:01; Status DC Morphine Sulfate 2 mg ONCE ONCE IVP Last administered on 04/04/25at 15:23; Start 04/04/25 at 15:00; Stop 04/04/25 at 15:01; Status DC Famotidine 20 mg BID IV; Start 04/04/25 at 21:00; Stop 04/04/25 at 18:27; Status DC Aspirin 81 mg ONCE ONCE PO Last administered on 04/04/25at 18:36; Start 04/04/25 at 18:00; Stop 04/04/25 at 18:01; Status DC Aspirin 81 mg DAILY PO; Start 04/05/25 at 09:00; Stop 05/05/25 at 08:59 Sodium Chloride 1,000 ml @ 75 mls/hr [id number] IV Last administered on 04/05/25at 09:42; Start 04/04/25 at 18:00; Stop 05/04/25 at 17:59 Acetaminophen 500 mg Q6H PRN PO; Start 04/04/25 at 18:00; Stop 05/04/25 at 17:59 Ondansetron HCl 4 mg Q6H PRN IVP; Start 04/04/25 at 18:00; Stop 05/04/25 at 17:59 Morphine Sulfate 2 mg Q6H PRN IVP; Start 04/04/25 at 18:00; Stop 04/11/25 at 17:59 Pantoprazole Sodium 40 mg Q24H IVP Last administered on 04/04/25at 18:36; Start 04/04/25 at 18:30; Stop 05/04/25 at 18:29 Losartan Potassium 25 mg DAILY PO Last administered on 04/05/25at 09:40; Start 04/05/25 at 09:00; Stop 05/05/25 at 08:59 Potassium Chloride 40 meq ONCE ONCE PO; Start 04/05/25 at 10:00; Stop 04/05/25 at 10:01; Status DC ASSESSMENT: 1. Mildly elevated troponin like demand ischemia 2. N/v on admission- resolved 3 history of HTN, HLD PLAN: From a cardiovascular standpoint pt has no classic anignal symptoms of cp or sob suspect is demand ischemia. On the day of admission pt was able to run 3 miles within 30 mins without complaints. ECG shows no acute stt changes IF pt echo if is normal on echo, pt can f/u with us outpt for cadx workup in office. Pt can go home on asa, no beta korey due to pt hr being in the 50's RAZA ALANIS PAC Apr 05, 2025 15:13
[2025-04-05] MEDS: PoTASSium chloRIDE 20MEQ ER 20 MEQ ERTAB PO ONE ×2 (15:31→15:34)
--- NOTE | 2025-04-05 16:40 | NUR ---
Discharge Planning Pt. lives with his spouse. PCP is Dr. Taty Stevens and preferred pharmacy is [facility] in [place]. Pt. states he is independent with all ADL's.No home health, provider services, or DME. DCP is for home. No d/c needs at present time.
--- NOTE | 2025-04-05 22:02 | HMCSR ---
APPROVED REPORT EXAM: Two-dimensional and M-mode echocardiogram with Doppler and color Doppler. INDICATION ICD: elevated troponin 2D Dimensions RVDd 3.9 cm LVEF(%) 74.8 (>50%) LVED Vol(simp.) 134.0 mL IVSd 1.2 (0.7-1.1cm) FS(%) 43 % LVES Vol(simp.) 65.0 mL LVDd 4.4 (3.8-5.6cm) LA (2D) 3.5 (1.6-4.0cm) LVEF(%, simp.) 51 % PWd 1.0 (0.7-1.1cm) Ao Root(2D) 3.8 (2.0-3.7cm) LA ESV INDEX (BP) 27.73 mL/m2 LVDs 2.5 (2.5-4.0cm) LVOT diam 2.5 (1.8-2.4cm) IVC diam 2.5 cm Deformation Strain Apical 4 -15.1 % Apical 2 -17.1 % Apical 3 -16.3 % Global Strain -16.2 % M-Mode Dimensions EPSS 0.5 cm LA (MM) 3.6 (1.6-4.0cm) Ao Root(MM) 3.9 (2.0-3.7cm) Aortic Valve AoV Vmax 1.4 m/s Ao Peak GR 8.4 mmHg LVOT Vmax 1.2 m/s AoV VTI 0.3 m Ao Mean GR 4.7 mmHg LVOT VTI 0.25 m JUNIOR (VMAX) 4.06 cm2 JUNIOR (VTI) 3.9 cm2 Mitral Valve MV E Vmax 80.7 cm/s DECEL Time 160 ms MV A Vmax 60.7 cm/s P 1/2 T 70 ms E/A ratio 1.3 MVA (PHT) 3.1 cm2 TDI E/E' Medial 7.5 E/E' Lateral 6.5 Medial E' Peak V 10.77 cm/s Lateral E' Peak V 12.36 cm/s Pulmonary Valve PV Vmax 1.2 m/s PV VTI 0.24 m PV Mean GR 2.6 mmHg PV Peak GR 5.7 mmHg PI End Kristin. Micah 72.2 cm/s Tricuspid Valve TR Vmax 2.1 m/s RVSP 16.8 mmHg TR Peak GR 16.8 mmHg Left Ventricle The left ventricle is normal size. No regional wall motion abnormalities noted. Mild concentric left ventricular hypertrophy. Left ventricular systolic function is low-normal, estimated LVEF is 50-55%. The left ventricular diastolic function is normal. Right Ventricle The right ventricle is normal size. The right ventricular systolic function is normal. Atria The left atrium size is normal. The right atrium size is normal. Aortic Valve The aortic valve is normal in structure. No aortic regurgitation is present. There is no aortic valvular stenosis. Mitral Valve The mitral valve is normal in structure. The leaflets are mildly thickened. Trace mitral regurgitation. There is no mitral valve stenosis. Tricuspid Valve The tricuspid valve is normal in structure. Trace tricuspid regurgitation. RVSP is 17mmHg. Pulmonic Valve Pulmonic valve is not well visualized. Great Vessels The aortic root is normal in size. The IVC is normal in size and collapses >50% with inspiration. Pericardium There is no pericardial effusion. Conclusion The cardiac chambers are normal in size. Mild concentric left ventricular hypertrophy. No regional wall motion abnormalities noted. Left ventricular systolic function is low-normal, estimated LVEF is 50-55%. The left ventricular diastolic function is normal. Trace mitral regurgitation. Trace tricuspid regurgitation. PASP is 20mmHg. There is no pericardial effusion.
[2025-04-06] VITALS: BP 119/67; PULSE 60; RESP 18; TEMP 96.8
[2025-04-06 04:00] VITALS: BP 127/83; PULSE 61; RESP 18; TEMP 98.4
[2025-04-06 04:35] LABS: IMMATURE GRANULOCYTE ABSOLUTE 0.01 K/uL (0-1); NUCLEATED RED BLOOD CELLS 0.0 % (0.0-0.19); PLATELET COUNT (AUTO) 286 K/uL (130-400); RED BLOOD CELL COUNT(AUTO) 4.29 MIL/uL (4.50-6.20); RED CELL DISTRIBUTION WIDTH 13.3 % (11.0-15.5); WHITE BLOOD COUNT (AUTO) 8.3 K/uL (4.8-10.8)
[2025-04-06 04:49] LABS: ASPARTATE AMINOTRANSFERASE 14.0 U/L (10-37); CREATININE 0.9 mg/dL (0.5-1.3); GLOMERULAR FILTR. RATE CALC 107.0 mL/min (>90); GLUCOSE,RANDOM 104.0 mg/dL (70-105); SODIUM SERUM 142.0 mmol/L (136-145); TOTAL PROTEIN, SERUM 6.5 g/dL (6.0-8.3); UREA NITROGEN, BLOOD 15.0 mg/dL (7-18)
[2025-04-06 07:19] VITALS: O2SAT 98
[2025-04-06 08:00] VITALS: BP 124/74; PULSE 65; RESP 16; TEMP 97.7
--- NOTE | 2025-04-06 11:04 | PN ---
HPI patient was seen and examined today, he was laying in bed no acute distress. He denies cp or sob Vitals/Labs PE GENERAL APPEARANCE: The patient is awake, alert, and oriented, in no acute cardiopulmonary distress. NEUROLOGICAL: Cranial nerves II-XII grossly intact. Motor is 5/5 in bilateral upper and lower extremities proximal to distal. No sensory deficits. HEENT: Face is symmetric. Pupils are equal and reactive. Extraocular movements are intact. NECK: Supple. No JVD. No thyromegaly. No submental, submandibular, pre- /postauricular, occipital or supraclavicular lymphadenopathy. CHEST: Normal chest expansion. No Telemetry. LUNGS: Absence of any rales, rhonchi or any wheezing. CARDIOVASCULAR: Regular. S1 and S2 normal. No appreciable rubs, murmurs or gallops. ABDOMEN: Soft, nontender, and nondistended. There is no rebound, voluntary guarding, or rigidity. : Deferred. No Vaz. EXTREMITIES: Non-edematous and not cyanotic. No clubbing. Good capillary refill. SKIN: No skin breakdown. Vital Signs Date Time Temp Pulse Resp B/P (MAP) Pulse Ox O2 Delivery O2 Flow Rate FiO2 04/06/25 08:00 97.7 65 16 124/74 98 Room Air 04/06/25 07:19 0 21 Laboratory Tests 04/06/25 04:24 Medications Current Medications Ondansetron HCl 4 mg ONCE ONCE IVP Last administered on 04/04/25at 15:23; Start 04/04/25 at 15:00; Stop 04/04/25 at 15:01; Status DC Famotidine 20 mg ONCE ONCE IV Last administered on 04/04/25at 15:23; Start 04/04/25 at 15:00; Stop 04/04/25 at 15:01; Status DC Morphine Sulfate 2 mg ONCE ONCE IVP Last administered on 04/04/25at 15:23; Start 04/04/25 at 15:00; Stop 04/04/25 at 15:01; Status DC Famotidine 20 mg BID IV; Start 04/04/25 at 21:00; Stop 04/04/25 at 18:27; Status DC Aspirin 81 mg ONCE ONCE PO Last administered on 04/04/25at 18:36; Start 04/04/25 at 18:00; Stop 04/04/25 at 18:01; Status DC Aspirin 81 mg DAILY PO Last administered on 04/06/25at 09:50; Start 04/05/25 at 09:00; Stop 05/05/25 at 08:59 Sodium Chloride 1,000 ml @ 75 mls/hr [id number] IV Last administered on 04/05/25at 09:42; Start 04/04/25 at 18:00; Stop 05/04/25 at 17:59 Acetaminophen 500 mg Q6H PRN PO; Start 04/04/25 at 18:00; Stop 05/04/25 at 17:59 Ondansetron HCl 4 mg Q6H PRN IVP; Start 04/04/25 at 18:00; Stop 05/04/25 at 17:59 Morphine Sulfate 2 mg Q6H PRN IVP; Start 04/04/25 at 18:00; Stop 04/11/25 at 17:59 Pantoprazole Sodium 40 mg Q24H IVP Last administered on 04/06/25at 09:50; Start 04/04/25 at 18:30; Stop 05/04/25 at 18:29 Losartan Potassium 25 mg DAILY PO Last administered on 04/06/25at 09:50; Start 04/05/25 at 09:00; Stop 05/05/25 at 08:59 Potassium Chloride 40 meq ONCE ONCE PO Last administered on 04/05/25at 15:34; Start 04/05/25 at 10:00; Stop 04/05/25 at 10:01; Status DC Potassium Chloride 20 meq STK-MED ONCE PO; Start 04/05/25 at 15:25; Stop 04/05/25 at 15:24; Status DC ASSESSMENT: 1. Mildly elevated troponin like demand ischemia 2. N/v on admission- resolved 3 history of HTN, HLD PLAN: From a cardiovascular standpoint pt has no classic anginal symptoms of cp or sob On the day of admission pt was able to run 3 miles within 30 mins without complaints. ECG shows no acute stt changes echo ef is 50-55% with no significant valvular heart disease pt can f/u with us outpt for cadx workup in office. Pt can go home on asa, no beta korey due to pt hr being in the 50's RAZA ALANIS PAC Apr 06, 2025 11:04
[2025-04-06] MEDS ORDERED: ASPI-1005 PO (12:03)
--- NOTE | 2025-04-06 12:09 | DS ---
Discharge Summary Hospital Course Summary: DATE OF ADMISSION:[04/04/2025] DATE OF DISCHARGE:[04/06/2025] DISPOSITION:[Home] CONDITION:[Medically stable] CONSULTANTS:[Engineering Project Designer] FOLLOW UP APPOINTMENTS:[PCP 2 to 3 days. Engineering Project Designer within two weeks] PROCEDURES:[None] IMAGING: report attached to summary MICROBIOLOGY: report attached to summary ACTIVITY:[Independent] HOME MEDICATIONS: see [facility] NEW MEDICATIONS:[Aspirin 81 mg p.o. daily. Continue losartan. As per cardiol ogist. Beta-korey] EMERGENCY INSTRUCTIONS: The patient was instructed to present to the nearest Emergency departmentr or call 911 once their symptoms will return or worsen Chain Pegger(s): Patient is 45 years old male with a past medical history of hypertension, hyperlipidemia who came to emergency department with a complaint of abdominal pain in the left upper quadrant/epigastric area associated with the nausea vomiting and pain. On admission his troponins were elevated and patient also admitted to chest pressure. We consulted casting molder Dr. Capellan. CT abdomen/pelvis was performed and was negative. Chest x-ray negative 2D echo was performed and showed EF 50 to 55% left ventricle diastolic function normal. Patient was evaluated by the casting molder and patient was cleared to be discharged home on losartan and aspirin. Stop labetalol due to low heart rate. Follow up outpatient within two weeks with the casting molder. We also advised that patient to follow up with his PCP in 2 to 3 days. Today patient is denying any shortness of breath, chest pain, nausea, vomiting, chest pressure or any other discomfort. Procedure(s): REVIEW OF SYSTEMS CONSTITUTIONAL: Denies fevers, chills, or night sweats. No unintentional weight loss reported. NEUROLOGICAL: Denies headache, amaurosis fugax, motor weakness, sensory deficit, vertigo/spinning sensation, gait abnormalities, or tremors. ENT: No hearing loss, otalgia, otorrhea, rhinitis, rhinorrhea, hoarseness, or sore throat. CARDIOVASCULAR: Denies any exertional angina, dyspnea on exertion, orthopnea, paroxysmal nocturnal dyspnea, palpitations, life-threatening arrhythmias, claudication. PULMONARY: Denies any shortness of breath, cough, phlegm/sputum, hemoptysis, pleuritic chest pain. SLEEP: Denies morning headaches, daytime somnolence or napping. Denies difficulty falling asleep, staying asleep, waking from sleep. Denies knowledge of snoring. GASTROINTESTINAL: Denies any nausea, vomiting, constipation. Denied any diarrhea, melena, hematochezia, hematemesis GENITOURINARY: Denies frequency, urgency, nocturia, hematuria or incontinence (Storage/Irritative symptoms.) Low urinary stream, straining to void, urinary intermittency or hesitancy, splitting of the voiding stream, terminal dribbling. ENDOCRINOLOGIC: Denies polyuria, polydipsia, polyphagia or heat/cold intolerances. HEMATOLOGIC: Denies thrombophilia/previous clots, or coagulopathy/bleeding disorders. ONCOLOGIC: Denies personal history of malignancy. DERMATOLOGIC: Denies rashes or pruritus. PSYCHIATRIC: Denies any suicidal or homicidal ideation. Denies hallucinations. PHYSICAL EXAM GENERAL APPEARANCE: The patient is awake, alert, and oriented, in no acute cardiopulmonary distress. NEUROLOGICAL: Cranial nerves II-XII grossly intact. Motor is 5/5 in bilateral upper and lower extremities proximal to distal. No sensory deficits. HEENT: Face is symmetric. Pupils are equal and reactive. Extraocular movements are intact. NECK: Supple. No JVD. No thyromegaly. No submental, submandibular, pre- /postauricular, occipital or supraclavicular lymphadenopathy. CHEST: Normal chest expansion. No Telemetry. LUNGS: Absence of any rales, rhonchi or any wheezing. CARDIOVASCULAR: Regular. S1 and S2 normal. No appreciable rubs, murmurs or gallops. ABDOMEN: Soft, nontender, and nondistended. There is no rebound, voluntary guarding, or rigidity. : Deferred. No Vaz. EXTREMITIES: Non-edematous and not cyanotic. No clubbing. Good capillary refill. SKIN: No skin breakdown. Assessment/Plan: ASSESSMENT: Troponin elevation nonspecific likely in setting of type 2 SC Abdominal pain differential GERD Dehydration Constipation Home Medications: Reported Medications Losartan Potassium (Losartan Potassium) 25 Mg Tablet, 1 TAB PO DAILY for 30 Days, #30 TAB 0 Refills 04/04/25 Time spent arranging discharge: 31-60 minutes ATTESTATION BY PHYSICIAN I have seen and examined the patient. I reviewed the documentation, medical decision making, and treatment plan as noted by the mid-level provider above. I agree with the findings and plan of care. Blade Ocasio MD, [facility] Apr 06, 2025 12:09
--- NOTE | 2025-04-06 12:31 | NUR ---
DC INSTRUCTIONS PROVIDED AND ACKOWLEDGED. IV REMOVED
== END 2025-04-06 11:40 | disposition home or self-care (01) | DRG 391 ==
LOC: EDH 14:32 → EDHIP 14:33 → 3BH 21:59
PROVIDERS: ADMIT Internal Medicine; ATTEND Internal Medicine
DX: K59.00 Constipation, unspecified (principal); I21.A1 Myocardial infarction type 2; E86.0 Dehydration; K21.9 Gastro-esophageal reflux disease without esophagitis
CPT/HCPCS: 36415; 71045; 74176; 80048; 80053; 80076; 80305; 81001; 82948; 83605; 83690; 83735; 84145; 84443; 84484; 85025; 85610; 85730; 93005; 93306; 93356; 99285; G0378; J2270; J2405; J2470; J1308